=== PATIENT | male | born 1960 | race Caucasian/White ===

== ENCOUNTER 2017-04-11 15:33 | Emergency (ER) | payer OTHER ==
[~2017-04-11] VITALS: Ht 170.2 cm; Wt 116.0 kg
[~2017-04-11 15:33] MED LIST: IBUP800T23 PO; TRAM50 PO
[2017-04-11 15:48] VITALS: BP 179/57; PULSE 65; RESP 16; TEMP 98.4; O2SAT 96
[2017-04-11] MEDS ORDERED: IBUP1TAB7 PO (16:10)
--- NOTE | 2017-04-11 16:11 | PD ---
HPI Chief Complaint: Musculoskeletal Complaint Time Seen by Provider: 16:08 Travel History International Travel<30 days: No Contact w/Intl Traveler<30days: No Traveled to known affect area: No History of Present Illness HPI 57-year-old male with nontraumatic left knee pain. He has had similar episodes in the past. Denies fever or chills. Has pain with weightbearing. Relieved with rest. Symptoms severity mild. PFSH Past Medical History Medical History: Denies Significant Hx Diminished Hearing: No Immunizations Current: Yes Past Surgical History Other Surgery: Yes (nasal) Social History Alcohol Use: Yes (beer daily) Tobacco Use: Yes (04/11 ppd) Substance Use: No Allergies-Medications (Allergen,Severity, Reaction): Coded Allergies: No Known Allergies (Unverified Adverse Reaction, Unknown, 04/11/17) Reported Meds & Prescriptions Reported Meds & Active Scripts Active Ibuprofen 800 Mg Tab 800 Mg PO Q6HR PRN Review of Systems Except as stated in HPI: all other systems reviewed are Neg General / Constitutional: No: Fever Eyes: No: Visual changes HENT: No: Headaches Cardiovascular: No: Chest Pain or Discomfort Respiratory: No: Shortness of Breath Gastrointestinal: No: Abdominal Pain Physical Exam Narrative GENERAL: Alert well-appearing male. No distress. SKIN: Warm and dry. HEAD: Normocephalic. NECK: Supple, trachea midline. CARDIOVASCULAR: Regular rate and rhythm . RESPIRATORY: Breath sounds equal bilaterally. No accessory muscle use. MUSCULOSKELETAL: No cyanosis, or edema. Left knee: the joint is stable. Mild amount of swelling. No erythema, warmth, or lesions. Mild tenderness to palpation of the anterior aspect. Data Data Last Documented VS Vital Signs Date Time Temp Pulse Resp B/P (MAP) Pulse Ox O2 Delivery O2 Flow Rate FiO2 04/11/17 15:48 98.4 65 16 179/57 (97) 96 Orders Orders Varun Bandage (04/11/17 16:11) Ibuprofen (Motrin) (04/11/17 16:30) MDM Medical Decision Making Medical Screen Exam Complete: Yes Emergency Medical Condition: Yes Differential Diagnosis Sprain/STRAIN, FX, meniscal injury Narrative Course 57-year-old male with nontraumatic left knee pain. He has had similar episodes in the past. He has a moderate-sized joint effusion. No erythema or warmth of the joint. The joint is stable. Extremities neurovascularly intact. Patient is well-appearing. Varun wrap will be applied to the left knee and discharged home on NSAIDs. Diagnosis Primary Impression: Knee strain Qualified Codes: S86.912A - Strain of unspecified muscle(s) and tendon(s) at lower leg level, left leg, initial encounter Referrals: [facility] Forms: Tests/Procedures, Work Release Enter return to work date: Apr 14, 2017 Scripts Ibuprofen (Ibuprofen) 800 Mg Tab 800 MG PO Q6HR Y for PAIN, #40 TAB 0 Refills Prov: Miladys Garvey 04/11/17 Disposition: 01 DISCHARGE HOME Condition: Stable Miladys Garvey Apr 11, 2017 16:11
[2017-04-11] MEDS ORDERED: IBUPROFEN 800 MG TAB PO ONE (16:30)
== END 2017-04-11 16:38 | disposition home or self-care (01) ==
LOC: PHEFT 15:33
DX: S86.912A Strain of unspecified muscle(s) and tendon(s) at lower leg level, left leg, initial encounter (principal); F17.210 Nicotine dependence, cigarettes, uncomplicated; X58.XXXA Exposure to other specified factors, initial encounter
CPT/HCPCS: 99282